=== PATIENT | male | born 1960 | race Caucasian/White ===

== ENCOUNTER 2019-02-20 15:40 | Inpatient (IN) | payer OTHER ==
[~2019-02-20] VITALS: Ht 175.3 cm; Wt 126.6 kg
[~2019-02-20 15:40] MED LIST: AMOX1TAB12 PO; APRESOLINE 10MG10 MG; BOTTL; CARDURA; CARDURA1 MG; CARdura 4MG TABLET PO; CLOTRIM ANTIFUN15 GM; CYMBALTA60 MG PO; DICLOXACILLIN500 MG PO; FERROUS SU325 ( 65 ) PO; FOLIC ACID0.4 MG; GABAPENTIN800 MG; GABAPENTIN800 MG PO; HYDRALAZINE HC100 MG; HYDRALAZINE HCL50 MG PO; HYZAAR 100-251 UDTAB PO; HYZAAR 100/25 T1 TAB; HYZAAR 100/25 T1 TAB PO; INTESTINEX680 MG PO; JANUMET 50-1,1 UDTAB; JANUMET 50-1,1 UDTAB PO; JANUMET XR 1001 EACH; KEPPRA XR500 MG; KEPPRA500 MG PO; LEVOFLOXACIN750 MG PO; LOSARTAN-HCTZ1 EAC1; LOTRISONE CREAM45 GM TP; LYRICA150 MG; METOPROLOL ER-1 EAC1; OMEPRAZOLE20 MG; PRILOSEC OTC20 MG; PRILOSEC OTC20 MG PO; SEROQUEL25 MG; SEROQUEL25 MG PO; SEROQUEL50 MG; SILVADENE50 GM TP; TOPROL XL100 M1 PO; TOPROL XL200 MG; XOPENEX0.63 MG/3 IH; ZANAFLEX2 MG; ZANTAC150 MG; ZANTAC300 MG; ZANTAC300 MG PO; ZOCOR20 MG; ZoCOR 20MG TABLET PO
[2019-02-20] MEDS ORDERED: LYRICA50 MG (16:24)
[2019-02-20] MEDS ORDERED: JANUMET XR 50-1 EAC1 (16:24)
--- NOTE | 2019-02-20 16:26 | NUR ---
SE RECIBE PTE ALERTA Y ORIENTADO X3,ES REFERIDO DE RAÚL SANTOS,EL PTE SE MAREO EN LA MANANA DE YURIY ,REFIEREN QUE TIENE PRESION ALTERIAL BAJA.
--- NOTE | 2019-02-20 16:35 | NUR ---
SE ORIENTA AL PACIENTE SOBRE EL TX. SE CONECTA A MONITOR CARDIACO Y OXIMETRIA DE PULSO. SE EXTRAEN MUESTRAS DE MONICA BAJO MEDIDAS ASEPTICAS SE ROTULAN Y ENVIAN AL LABORATORIO. SE CANALIZA Y ADMINISTRAN MEDICAMENTOS HUSSEIN ORDEN MEDICA. SE INSERTA DOWELL CATETER DRENANDO 300 ML DE UA AMARILLO INTENSO. EKG REALIZADO Y EVALUADO POR DR. SEPULVEDA.
[2019-03-02] MEDS ORDERED: TOPROL XL100 M1 PO (12:12)
[2019-03-02] MEDS ORDERED: CEFDINIR300 MG PO (12:13)
== END 2019-03-02 14:14 | disposition home or self-care (01) | DRG 673 ==
LOC: ER 15:40 → ICU-2 19:25 → ICU 02-21 22:19 → MEDI 02-25 13:53 → MEDJ 02-25 13:53 → MEDI 03-02 14:14
PROVIDERS: ADMIT Internal Medicine
PROC: 4A033R1 Measurement of Arterial Saturation, Peripheral, Percutaneous Approach (ICD-10-PCS; 2019-02-20)
PROC: BT43ZZZ Ultrasonography of Bilateral Kidneys (ICD-10-PCS; 2019-02-20)
PROC: B246ZZZ Ultrasonography of Right and Left Heart (ICD-10-PCS; 2019-02-20)
PROC: 0JBR0ZZ Excision of Left Foot Subcutaneous Tissue and Fascia, Open Approach (ICD-10-PCS; principal; 2019-02-21)
PROC: 30233N1 Transfusion of Nonautologous Red Blood Cells into Peripheral Vein, Percutaneous Approach (ICD-10-PCS; 2019-02-27)
DX: I12.9 Hypertensive chronic kidney disease with stage 1 through stage 4 chronic kidney disease, or unspecified chronic kidney disease (principal); J16.8 Pneumonia due to other specified infectious organisms; N17.8 Other acute kidney failure; L03.116 Cellulitis of left lower limb; L97.528 Non-pressure chronic ulcer of other part of left foot with other specified severity; N18.9 Chronic kidney disease, unspecified; R23.0 Cyanosis; D50.0 Iron deficiency anemia secondary to blood loss (chronic); E78.49 Other hyperlipidemia; K21.9 Gastro-esophageal reflux disease without esophagitis; E11.42 Type 2 diabetes mellitus with diabetic polyneuropathy; E11.621 Type 2 diabetes mellitus with foot ulcer; L30.4 Erythema intertrigo; G47.33 Obstructive sleep apnea (adult) (pediatric); R09.02 Hypoxemia; E11.65 Type 2 diabetes mellitus with hyperglycemia; S80.812A Abrasion, left lower leg, initial encounter; B95.2 Enterococcus as the cause of diseases classified elsewhere

== ENCOUNTER 2019-10-25 07:41 | Emergency (ER) | payer OTHER ==
[~2019-10-25] VITALS: Ht 180.3 cm; Wt 122.5 kg
[~2019-10-25 07:41] MED LIST changes: +CEFDINIR300 MG PO; +JANUMET XR 50-1 EAC1; +LYRICA50 MG
[2019-10-25] MEDS ORDERED: LASIX40 MG PO (07:57)
[2019-10-25] MEDS ORDERED: TOPROL XL100 M1 PO (07:58)
[2019-10-25] MEDS ORDERED: PLAVIX75 MG PO (07:58)
[2019-10-25] MEDS ORDERED: COZAAR50 MG PO (07:59)
[2019-10-25] MEDS ORDERED: GLIMEPIRIDE4 MG (07:59)
[2019-10-25] MEDS ORDERED: KEPPRA500 MG PO (07:59)
[2019-10-25] MEDS ORDERED: JANUVIA100 MG PO (08:00)
[2019-10-25] MEDS ORDERED: LATUDA40 MG PO (08:00)
[2019-10-25] MEDS ORDERED: LYRICA50 MG PO (08:00)
[2019-10-25] MEDS ORDERED: PANTOPRAZOLE SO40 MG PO (08:00)
[2019-10-25] MEDS ORDERED: CLONAZEPAM1 MG PO (08:01)
[2019-10-25] MEDS ORDERED: ZANTAC300 MG PO (08:01)
[2019-10-25] MEDS ORDERED: ULTRACET PO ×2 (14:57→14:58)
[2019-10-25] MEDS ORDERED: MONDOXYNE NL100 MG PO (14:57)
== END 2019-10-25 16:05 | disposition home or self-care (01) ==
LOC: ER 07:41 → CPU-OBS 08:31 → ER 16:05
DX: R07.89 Other chest pain (principal); L97.528 Non-pressure chronic ulcer of other part of left foot with other specified severity
CPT/HCPCS: 93005; G0378; G0379; 82805; 36600

== ENCOUNTER 2020-11-06 10:41 | Inpatient (IN) | payer OTHER ==
[~2020-11-06] VITALS: Ht 180.3 cm; Wt 121.1 kg
[~2020-11-06 10:41] MED LIST changes: +CLONAZEPAM1 MG PO; +COZAAR50 MG PO; +GLIMEPIRIDE4 MG; +JANUVIA100 MG PO; +LASIX40 MG PO; +LATUDA40 MG PO; +LYRICA50 MG PO; +MONDOXYNE NL100 MG PO; +PANTOPRAZOLE SO40 MG PO; +PLAVIX75 MG PO; +ULTRACET PO
[2020-11-06] MEDS ORDERED: TOUJEO SOL300 UNIT/1 SQ (11:03)
--- NOTE | 2020-11-06 11:03 | NUR ---
SE RECIBE PTE ALERTA Y ORIENTADO X 3 QUIEN VERBALIZA DOLOR EN PIE Y PIERNA LT. PTE DIABETICO SE LE REALIZA DEXTROSTICK: 597MG/DL. SE UBICA EN BRYANNA DE OBSERVACION PARA EVALUACION Y TRATAMIENTO MEDICO.
--- NOTE | 2020-11-06 15:25 | NUR ---
PACIENTE ALERTA Y ORIENTADO EN CAMACHO VIRGIE ESFERAS, PRESENTA BUEN PATRON RESPIRATORIO Y NANCY DE DOLOR. RECIBIENDO 0.9% NSS A 150 ML/HR, VENOPUNCION PATENTE Y NANCY DE S/S DE FLEBITIS E INFILTRACION, PENDIENTE EVALUACION DE MEDICINA INTERNA CON DRA [employer] ZHAO POR CELULITIS Y ULCERA EN PIE LT.
== END 2020-12-21 13:39 | DRG 41 ==
LOC: ER 10:41 → SURH 16:43
PROVIDERS: ADMIT Internal Medicine; ATTEND Internal Medicine
PROC: 3E0F7SF Introduction of Other Gas into Respiratory Tract, Via Natural or Artificial Opening (ICD-10-PCS; 2020-11-06)
PROC: 4A033R1 Measurement of Arterial Saturation, Peripheral, Percutaneous Approach (ICD-10-PCS; 2020-11-06)
PROC: 0JBR0ZZ Excision of Left Foot Subcutaneous Tissue and Fascia, Open Approach (ICD-10-PCS; principal; 2020-11-11)
PROC: 0S9D3ZX Drainage of Left Knee Joint, Percutaneous Approach, Diagnostic (ICD-10-PCS; 2020-11-25)
PROC: 02HV33Z Insertion of Infusion Device into Superior Vena Cava, Percutaneous Approach (ICD-10-PCS; 2020-11-27)
PROC: 30233N1 Transfusion of Nonautologous Red Blood Cells into Peripheral Vein, Percutaneous Approach (ICD-10-PCS; 2020-11-30)
PROC: 8E0ZXY6 Isolation (ICD-10-PCS; 2020-12-05)
DX: E11.42 Type 2 diabetes mellitus with diabetic polyneuropathy (principal); L03.116 Cellulitis of left lower limb; N17.8 Other acute kidney failure; L97.428 Non-pressure chronic ulcer of left heel and midfoot with other specified severity; M86.171 Other acute osteomyelitis, right ankle and foot; E11.69 Type 2 diabetes mellitus with other specified complication; E11.621 Type 2 diabetes mellitus with foot ulcer; E11.65 Type 2 diabetes mellitus with hyperglycemia; I12.9 Hypertensive chronic kidney disease with stage 1 through stage 4 chronic kidney disease, or unspecified chronic kidney disease; D50.8 Other iron deficiency anemias; B37.2 Candidiasis of skin and nail; E66.8 Other obesity; N18.32 Chronic kidney disease, stage 3b; Z79.4 Long term (current) use of insulin; Z20.822 Contact with and (suspected) exposure to COVID-19; K59.09 Other constipation; Z68.37 Body mass index [BMI] 37.0-37.9, adult

== ENCOUNTER 2021-10-20 04:44 | Emergency (ER) | payer OTHER ==
[~2021-10-20] VITALS: Ht 172.7 cm; Wt 158.8 kg
[~2021-10-20 04:44] MED LIST changes: +TOUJEO SOL300 UNIT/1 SQ
[2021-10-20] MEDS ORDERED: DICLOFENAC SOD100 MG PO (06:47)
[2021-10-20] MEDS ORDERED: CEPHALEXIN500 MG PO ×2 (06:47→06:50)
[2021-10-20] MEDS ORDERED: DOLOGESIC-DF 51 EACH PO (06:50)
== END 2021-10-20 08:33 ==
LOC: ER 04:44
DX: S89.90XA Unspecified injury of unspecified lower leg, initial encounter (principal); W06.XXXA Fall from bed, initial encounter; Y93.89 Activity, other specified; Y92.013 Bedroom of single-family (private) house as the place of occurrence of the external cause; S59.901A Unspecified injury of right elbow, initial encounter; S59.902A Unspecified injury of left elbow, initial encounter

== ENCOUNTER 2022-10-24 07:09 | Outpatient (CLI) | payer OTHER ==
[~2022-10-24 07:09] MED LIST changes: +CEPHALEXIN500 MG PO; +DICLOFENAC SOD100 MG PO; +DOLOGESIC-DF 51 EACH PO
== END 2022-10-24 07:21 | disposition home or self-care (01) ==
LOC: TOM 07:09
PROVIDERS: ATTEND Surgery
DX: Z12.11 Encounter for screening for malignant neoplasm of colon (principal); K92.1 Melena; K56.5 Intestinal adhesions [bands] with obstruction (postinfection)

== ENCOUNTER 2022-11-27 00:44 | Inpatient (IN) | payer OTHER ==
[~2022-11-27] VITALS: Ht 180.3 cm; Wt 143.8 kg
[2022-11-28] MEDS ORDERED: IRBESARTAN300 MG (10:16)
[2022-11-28] MEDS ORDERED: ATORVASTATIN CA10 MG (10:17)
[2022-11-28] MEDS ORDERED: NORFLEX100MG (10:17)
[2022-11-28] MEDS ORDERED: BUMETANIDE1 MG (10:19)
[2022-11-28] MEDS ORDERED: HYDRALAZINE HCL50 MG (10:20)
[2022-11-28] MEDS ORDERED: FINASTERIDE5 MG (10:20)
[2022-11-28] MEDS ORDERED: OLOPATADINE HCL5 ML (10:20)
[2022-11-28] MEDS ORDERED: FOLIC ACID1 MG (10:20)
[2022-11-28] MEDS ORDERED: INTEGRA PLUS C1 EAC1 (10:20)
[2022-11-28] MEDS ORDERED: DAFLONEX-XL 11300 MG (10:20)
[2022-11-28] MEDS ORDERED: HUMALOG KW100 UNIT/1 (10:20)
[2022-11-28] MEDS ORDERED: TAMSULOSIN HCL0.4 MG (10:20)
[2022-11-28] MEDS ORDERED: FARXIGA10 MG (10:20)
[2022-12-02] MEDS ORDERED: AMOX-CLAV 875-1 EAC1 PO (14:41)
[2022-12-02] MEDS ORDERED: CLOPIDOGREL BIS75 MG PO (14:42)
[2022-12-02] MEDS ORDERED: ELIQUIS2.5 MG PO (14:42)
[2022-12-02] MEDS ORDERED: LIPITOR40 MG PO (14:43)
[2022-12-02] MEDS ORDERED: CLOTRIMAZOLE-BE15 G1 TOP (14:44)
== END 2022-12-02 22:25 | disposition home or self-care (01) | DRG 603 ==
LOC: ER 00:44 → MEDJ 18:19 → SURH 18:19 → MEDJ 19:26 → SURH 19:43
PROVIDERS: ADMIT Internal Medicine; ATTEND Internal Medicine
PROC: B54CZZZ Ultrasonography of Left Lower Extremity Veins (ICD-10-PCS; principal; 2022-11-27)
PROC: B44GZZZ Ultrasonography of Left Lower Extremity Arteries (ICD-10-PCS; 2022-11-27)
DX: L03.116 Cellulitis of left lower limb (principal); E11.69 Type 2 diabetes mellitus with other specified complication; B95.2 Enterococcus as the cause of diseases classified elsewhere; E11.40 Type 2 diabetes mellitus with diabetic neuropathy, unspecified; I87.2 Venous insufficiency (chronic) (peripheral); L08.89 Other specified local infections of the skin and subcutaneous tissue; Z79.4 Long term (current) use of insulin; E11.22 Type 2 diabetes mellitus with diabetic chronic kidney disease; I12.9 Hypertensive chronic kidney disease with stage 1 through stage 4 chronic kidney disease, or unspecified chronic kidney disease; N18.9 Chronic kidney disease, unspecified; G47.33 Obstructive sleep apnea (adult) (pediatric); Z20.822 Contact with and (suspected) exposure to COVID-19

== ENCOUNTER 2023-04-17 08:43 | Outpatient (CLI) | payer OTHER ==
[~2023-04-17 08:43] MED LIST changes: +AMOX-CLAV 875-1 EAC1 PO; +ATORVASTATIN CA10 MG; +BUMETANIDE1 MG; +CLOPIDOGREL BIS75 MG PO; +CLOTRIMAZOLE-BE15 G1 TOP; +DAFLONEX-XL 11300 MG; +ELIQUIS2.5 MG PO; +FARXIGA10 MG; +FINASTERIDE5 MG; +FOLIC ACID1 MG; +HUMALOG KW100 UNIT/1; +HYDRALAZINE HCL50 MG; +INTEGRA PLUS C1 EAC1; +IRBESARTAN300 MG; +LIPITOR40 MG PO; +NORFLEX100MG; +OLOPATADINE HCL5 ML; +TAMSULOSIN HCL0.4 MG
== END 2023-04-17 08:57 | disposition home or self-care (01) ==
LOC: LAB 08:43
PROVIDERS: ATTEND Internal Medicine Hematology & Oncology
DX: D50.8 Other iron deficiency anemias (principal); R79.9 Abnormal finding of blood chemistry, unspecified; I10 Essential (primary) hypertension; R74.02 Elevation of levels of lactic acid dehydrogenase [LDH]; K76.89 Other specified diseases of liver; D63.8 Anemia in other chronic diseases classified elsewhere; D55.0 Anemia due to glucose-6-phosphate dehydrogenase [G6PD] deficiency; D51.1 Vitamin B12 deficiency anemia due to selective vitamin B12 malabsorption with proteinuria; D51.0 Vitamin B12 deficiency anemia due to intrinsic factor deficiency; D63.1 Anemia in chronic kidney disease; E03.8 Other specified hypothyroidism; E06.3 Autoimmune thyroiditis; R97.0 Elevated carcinoembryonic antigen [CEA]; R97.8 Other abnormal tumor markers; R97.20 Elevated prostate specific antigen [PSA]; D51.3 Other dietary vitamin B12 deficiency anemia; N18.32 Chronic kidney disease, stage 3b; E11.22 Type 2 diabetes mellitus with diabetic chronic kidney disease; E42 Marasmic kwashiorkor; E11.622 Type 2 diabetes mellitus with other skin ulcer; E11.319 Type 2 diabetes mellitus with unspecified diabetic retinopathy without macular edema; E11.39 Type 2 diabetes mellitus with other diabetic ophthalmic complication; E78.2 Mixed hyperlipidemia; I73.9 Peripheral vascular disease, unspecified; G40.009 Localization-related (focal) (partial) idiopathic epilepsy and epileptic syndromes with seizures of localized onset, not intractable, without status epilepticus; E55.9 Vitamin D deficiency, unspecified; N40.1 Benign prostatic hyperplasia with lower urinary tract symptoms

== ENCOUNTER 2023-04-17 09:40 | Outpatient (CLI) | payer OTHER | END 2023-04-17 09:47 | disposition home or self-care (01) | LOC: SONOGRAMA 09:40 | PROVIDERS: ATTEND Internal Medicine Hematology & Oncology | DX: E04.2 Nontoxic multinodular goiter (principal) ==

== ENCOUNTER 2023-06-03 11:55 | Inpatient (IN) | payer OTHER ==
[~2023-06-03] VITALS: Ht 180.3 cm; Wt 143.8 kg
[2023-06-05] MEDS ORDERED: CYANOCOBAL1000 MCG/1 (09:00)
[2023-06-05] MEDS ORDERED: MOUNJARO2.5 MG/0.5 (09:01)
[2023-06-05] MEDS ORDERED: PREGABALIN75 MG (09:02)
[2023-06-05] MEDS ORDERED: FAMOTIDINE20 MG (09:02)
[2023-06-05] MEDS ORDERED: ABANEU-SL TABL1 EACH (09:02)
[2023-06-05] MEDS ORDERED: FUSION PLUS CA1 EACH (09:02)
[2023-06-05] MEDS ORDERED: LANTUS SOL100 UNIT/1 (09:02)
== END 2023-06-14 17:06 | disposition home or self-care (01) | DRG 638 ==
LOC: ER 11:55 → MEDJ 20:03
PROVIDERS: ADMIT Specialist; ATTEND Specialist
PROC: BQ3FZZZ Magnetic Resonance Imaging (MRI) of Left Lower Leg (ICD-10-PCS; 2023-06-04)
PROC: 0HBNXZZ Excision of Left Foot Skin, External Approach (ICD-10-PCS; principal; 2023-06-07)
DX: E11.69 Type 2 diabetes mellitus with other specified complication (principal); L03.116 Cellulitis of left lower limb; M86.172 Other acute osteomyelitis, left ankle and foot; L97.529 Non-pressure chronic ulcer of other part of left foot with unspecified severity; E11.621 Type 2 diabetes mellitus with foot ulcer; N17.9 Acute kidney failure, unspecified; R56.9 Unspecified convulsions; L08.9 Local infection of the skin and subcutaneous tissue, unspecified; B96.20 Unspecified Escherichia coli [E. coli] as the cause of diseases classified elsewhere; B96.4 Proteus (mirabilis) (morganii) as the cause of diseases classified elsewhere; B96.89 Other specified bacterial agents as the cause of diseases classified elsewhere; I12.9 Hypertensive chronic kidney disease with stage 1 through stage 4 chronic kidney disease, or unspecified chronic kidney disease; E11.22 Type 2 diabetes mellitus with diabetic chronic kidney disease; N18.9 Chronic kidney disease, unspecified; Z79.4 Long term (current) use of insulin; E66.01 Morbid (severe) obesity due to excess calories; I87.2 Venous insufficiency (chronic) (peripheral); E11.65 Type 2 diabetes mellitus with hyperglycemia; Z74.01 Bed confinement status

== ENCOUNTER 2023-06-26 10:50 | Outpatient (CLI) | payer OTHER ==
[~2023-06-26 10:50] MED LIST changes: +ABANEU-SL TABL1 EACH; +CYANOCOBAL1000 MCG/1; +FAMOTIDINE20 MG; +FUSION PLUS CA1 EACH; +LANTUS SOL100 UNIT/1; +MOUNJARO2.5 MG/0.5; +PREGABALIN75 MG
== END 2023-06-26 10:56 | disposition home or self-care (01) ==
LOC: RAD 10:50
PROVIDERS: ATTEND Specialist
DX: M79.672 Pain in left foot (principal); E10.621 Type 1 diabetes mellitus with foot ulcer

== ENCOUNTER 2023-08-17 11:22 | Inpatient (IN) | payer OTHER ==
[~2023-08-17] VITALS: Ht 180.3 cm; Wt 137.4 kg
--- NOTE | 2023-08-17 12:09 | NUR ---
PTE ALERTA Y ORIENTADO POR VIRGIE ESFERAS CON BUEN PATRON RESPIRATORIO REFIERE QUE VIENE PORQUE GAGNON LO ORDENO QUE VINIERA A ER PARA QUE LO ADMITAN POR ULCERA BILATERAL CON BACTERIA MULTIRESISTENTE.
[2023-08-17 13:13] LABS: URINE APPEARANCE Clear; URINE BILIRRUBIN Negative (NEGATIVE); URINE BLOOD Negative; URINE COLOR Yellow; URINE LEUKOCYTE Negative; URINE NITRATE Negative; URINE PROTEIN Negative (NEGATIVE); URINE UROBILINOGEN 0.2 E.U./dl
[2023-08-17 13:26] LABS: URINE BACTERIA 0 uL (0.0-1933); URINE EPITHELIAL CELLS 0.1 uL (0.0-38.8); URINE GLUCOSE 100 MG/DL (NEGATIVE); URINE RBC 0.4 uL (0.0-20.8); URINE WBC 0.4 uL (0.0-23.2)
[2023-08-17 13:38] LABS: HEMATOCRIT 27.7 % (39.0-48.0); HEMOGLOBIN 9.4 g/dL (13-16.00); MEAN CELL VOLUME 90.8 fL (80.0-100.00); MEAN CORPUSCULAR HGB CONC 34.1 g/dl (32.0-36.0); PLATELET COUNT 222 K/uL (150-450); RED BLOOD COUNT 3.05 M/uL (4.00-6.00); RED CELL DISTRIBUTION WIDTH 15.3 % (11.5-14.5)
[2023-08-17 14:18] LABS: CALCIUM 8.6 mg/dL (8.5-10.1); CREATININE SERUM 3.04 mg/dL (0.70-1.30); GFR 21.13; POTASSIUM 4.1 mEq/L (3.5-5.1)
--- NOTE | 2023-08-17 15:35 | NUR ---
PTE ALERTA Y ORIENTADO X 3 ESFERAS EN BRYANNA CON BARANDAS ELEVADAS,AREA DE VENOPUNCION PATENTE Y NANCY DE EDEMA CON FLUIDOS DE MANTENIMIENTO,PTE MANEJADO POR MS [place] Y MS KIRKPATRICK EN TURNO ANTERIOR,PENDIENTE A SER EVALUADO POR DR BROWN.
[2023-08-17 18:42] LABS: INR 1.16; PARTIAL THROMBOPLASTIN TIME 28.8 SECONDS (22.0-34.0)
[2023-08-20 08:58] LABS: CALCIUM 8.6 mg/dL (8.5-10.1); CREATININE SERUM 2.42 mg/dL (0.70-1.30); GFR 27.4; POTASSIUM 4.28 mEq/L (3.5-5.1)
[2023-08-24 07:31] LABS: HEMATOCRIT 26.4 % (39.0-48.0); MEAN CELL VOLUME 91.3 fL (80.0-100.00); PLATELET COUNT 196 K/uL (150-450); RED BLOOD COUNT 2.89 M/uL (4.00-6.00)
[2023-08-24 08:09] LABS: CALCIUM 8.2 mg/dL (8.5-10.1); CREATININE SERUM 1.93 mg/dL (0.70-1.30); GFR 35.57; POTASSIUM 4.54 mEq/L (3.5-5.1)
== END 2023-08-28 17:12 | disposition home or self-care (01) | DRG 623 ==
LOC: ER 11:22 → MEDJ 18:46
PROVIDERS: Emergency Medicine; General Practice; ADMIT Internal Medicine; ATTEND Internal Medicine
PROC: 0JBN0ZZ Excision of Right Lower Leg Subcutaneous Tissue and Fascia, Open Approach (ICD-10-PCS; principal; 2023-08-22)
PROC: 02HV33Z Insertion of Infusion Device into Superior Vena Cava, Percutaneous Approach (ICD-10-PCS; 2023-08-28)
DX: E11.621 Type 2 diabetes mellitus with foot ulcer (principal); L97.913 Non-pressure chronic ulcer of unspecified part of right lower leg with necrosis of muscle; Z16.24 Resistance to multiple antibiotics; L08.9 Local infection of the skin and subcutaneous tissue, unspecified; D63.1 Anemia in chronic kidney disease; E11.22 Type 2 diabetes mellitus with diabetic chronic kidney disease; N18.9 Chronic kidney disease, unspecified; N17.9 Acute kidney failure, unspecified; I25.10 Atherosclerotic heart disease of native coronary artery without angina pectoris; I13.10 Hypertensive heart and chronic kidney disease without heart failure, with stage 1 through stage 4 chronic kidney disease, or unspecified chronic kidney disease; G47.33 Obstructive sleep apnea (adult) (pediatric); Z79.4 Long term (current) use of insulin; Z74.01 Bed confinement status; E11.40 Type 2 diabetes mellitus with diabetic neuropathy, unspecified; E11.649 Type 2 diabetes mellitus with hypoglycemia without coma; I87.2 Venous insufficiency (chronic) (peripheral); E66.01 Morbid (severe) obesity due to excess calories; B96.83 Acinetobacter baumannii as the cause of diseases classified elsewhere

== ENCOUNTER 2023-12-04 11:22 | Outpatient (CLI) | payer OTHER ==
[2023-12-04 12:22] LABS: MEAN CELL VOLUME 91.7 fL (80.0-100.00); MEAN CORPUSCULAR HEMOGLOBIN 30.7 pg (27.00-32.0); MEAN CORPUSCULAR HGB CONC 33.5 g/dl (32.0-36.0); PLATELET COUNT 208 K/uL (150-450); RED BLOOD COUNT 3.27 M/uL (4.00-6.00); RED CELL DISTRIBUTION WIDTH 16.8 % (11.5-14.5)
[2023-12-04 12:22] LABS: URINE APPEARANCE Clear; URINE BILIRRUBIN Negative (NEGATIVE); URINE BLOOD Negative; URINE COLOR Yellow; URINE LEUKOCYTE Negative; URINE NITRATE Negative; URINE PROTEIN Negative (NEGATIVE); URINE UROBILINOGEN 0.2 E.U./dl
[2023-12-04 13:08] LABS: URINE BACTERIA 2.5 uL (0.0-1933); URINE EPITHELIAL CELLS 0.7 uL (0.0-38.8); URINE GLUCOSE 250 MG/DL (NEGATIVE); URINE RBC 0.7 uL (0.0-20.8); URINE WBC 0.4 uL (0.0-23.2)
[2023-12-04 13:19] LABS: % SATURACION 24.4 % (20-50); ALBUMIN 2.8 gm/dL (3.4-5.0); BILIRUBIN TOTAL 0.4 mg/dL (0.3-1.2); CALCIUM 8.5 mg/dL (8.5-10.1); CREATININE SERUM 2.46 mg/dL (0.70-1.30); FERRITIN 76.5 NG/ML (26-388); GFR 26.88; GLOBULINA 3.1 G/DL (2.4-3.5); PHOSPHOROUS 3.2 mg/dL (2.5-4.9); POTASSIUM 4.25 mEq/L (3.5-5.1); T4 FREE 1.09 NG/ML (0.76-1.46); TOTAL PROTEIN 5.9 gm/dL (6.4-8.2); TSH 2.08 uIU/mL (0.358-3.74)
[2023-12-04 14:01] LABS: FOLIC ACID > 20.00 ng/ml (4.78-20)
[2023-12-04 14:35] LABS: URIC ACID 8.3 mg/dL (3.5-8.5)
[2023-12-04 14:38] LABS: CREATININE URINE RANDOM 32.4 MG/DL (30-125)
[2023-12-04 14:54] LABS: MANUAL PLATELET COUNT 422
[2023-12-04 14:56] LABS: PLATELET ESTIMATE NORMAL (NORMAL)
[2023-12-06 16:11] LABS: ERYTHROPOIETIN 24.9 mIU/mL (2.6-18.5)
== END 2023-12-04 11:23 | disposition home or self-care (01) ==
LOC: LAB 11:22
PROVIDERS: ATTEND Internal Medicine Hematology & Oncology
DX: D51.3 Other dietary vitamin B12 deficiency anemia (principal); D63.1 Anemia in chronic kidney disease; N18.32 Chronic kidney disease, stage 3b; E11.22 Type 2 diabetes mellitus with diabetic chronic kidney disease; E11.42 Type 2 diabetes mellitus with diabetic polyneuropathy; E11.622 Type 2 diabetes mellitus with other skin ulcer; E11.319 Type 2 diabetes mellitus with unspecified diabetic retinopathy without macular edema; E11.39 Type 2 diabetes mellitus with other diabetic ophthalmic complication; E78.2 Mixed hyperlipidemia; I73.9 Peripheral vascular disease, unspecified; G40.009 Localization-related (focal) (partial) idiopathic epilepsy and epileptic syndromes with seizures of localized onset, not intractable, without status epilepticus; E55.9 Vitamin D deficiency, unspecified; N40.1 Benign prostatic hyperplasia with lower urinary tract symptoms; I10 Essential (primary) hypertension; R80.9 Proteinuria, unspecified

== ENCOUNTER 2024-07-11 16:05 | Inpatient (IN) | payer OTHER ==
[~2024-07-11] VITALS: Ht 175.3 cm; Wt 136.1 kg
[2024-07-11] MEDS ORDERED: SODIUM CHLORIDE 0.45 % 1,000 ML IV SCH (17:00)
[2024-07-11] MEDS ORDERED: ACETAMINOPHEN 500 MG GEL..CAP PO ONE ×3 (17:00→22:42)
[2024-07-11 18:06] LABS: HEMATOCRIT 30.2 % (39.0-48.0); HEMOGLOBIN 9.9 g/dL (13-16.00); MEAN CORPUSCULAR HEMOGLOBIN 29.1 pg (27.00-32.0); MEAN CORPUSCULAR HGB CONC 32.7 g/dl (32.0-36.0); PLATELET COUNT 245 K/uL (150-450); RED BLOOD COUNT 3.39 M/uL (4.00-6.00); RED CELL DISTRIBUTION WIDTH 16.7 % (11.5-14.5)
[2024-07-11 18:30] LABS: ALBUMIN 2.7 gm/dL (3.4-5.0); BILIRUBIN TOTAL 0.6 mg/dL (0.3-1.2); CALCIUM 8.5 mg/dL (8.5-10.1); CREATININE SERUM 2.99 mg/dL (0.70-1.30); GFR 21.46; GLOBULINA 3.5 G/DL (2.4-3.5); POTASSIUM 4.64 mEq/L (3.5-5.1); TOTAL PROTEIN 6.2 gm/dL (6.4-8.2)
[2024-07-11] MEDS ORDERED: PIPERACILLIN/TAZOBACTAM SODIUM 3.375 GM VIAL IV ONE ×2 (18:30→18:37)
[2024-07-11] MEDS ORDERED: Pregabalin 50 MG CAPSULE PO ONE (18:30)
[2024-07-11 18:54] LABS: URINE APPEARANCE Clear; URINE BILIRRUBIN Negative (NEGATIVE); URINE BLOOD Negative; URINE COLOR Yellow; URINE KETONE Negative (NEGATIVE); URINE LEUKOCYTE Negative; URINE NITRATE Negative; URINE UROBILINOGEN 0.2 E.U./dl
[2024-07-11 18:59] LABS: URINE BACTERIA 45.3 uL (0.0-1933); URINE EPITHELIAL CELLS 4.1 uL (0.0-38.8); URINE WBC 8.3 uL (0.0-23.2)
[2024-07-11 19:21] LABS: URINE CAST 0.76 uL (0.0-1.40); URINE GLUCOSE 500 MG/DL (NEGATIVE); URINE PROTEIN 100 (NEGATIVE); URINE RBC 0.1 uL (0.0-20.8)
[2024-07-11] MEDS ORDERED: INSULIN GLARGINE,HUM.REC.ANLOG 1,000 UNITS/10 ML UNITS SUBCUTANEO SCH (20:54)
[2024-07-11] MEDS ORDERED: ACETAMINOPHEN 500 MG GEL..CAP PO PRN (21:00)
[2024-07-11] MEDS ORDERED: 0.9 % SODIUM CHLORIDE 1,000 ML IV SCH (21:00)
[2024-07-11] MEDS ORDERED: DEXTROSE 50 % IN WATER 0.5 G/ML DISP.SYRIN IV PRN (21:00)
[2024-07-11] MEDS ORDERED: INSULIN LISPRO 1,000 UNIT/10 ML UNITS SUBCUTANEO PRN (21:00)
[2024-07-12] MEDS ORDERED: PIPERACILLIN/TAZOBACTAM SODIUM 2.25 GM in DEXTROSE 5 % IN WATER 50 ML IV SCH
[2024-07-12 06:48] VITALS: BP 160/51; O2SAT 98
[2024-07-12] MEDS ORDERED: FAMOTIDINE/PF 20 MG/2 ML VIAL ONE (08:00)
[2024-07-12] MEDS ORDERED: Pregabalin 50 MG CAPSULE PO SCH ×3 (09:00→17:00)
[2024-07-12] MEDS ORDERED: CLOTRIMAZOLE 15 GM TUBE TOP SCH (09:00)
[2024-07-12] MEDS ORDERED: hydrALAZINE HCL 50 MG TABLET PO SCH (09:00)
[2024-07-12] MEDS ORDERED: BUMETANIDE 1 MG TABLET PO SCH (09:00)
[2024-07-12] MEDS ORDERED: ATORVASTATIN CALCIUM 40 MG TABLET PO SCH (09:00)
[2024-07-12] MEDS ORDERED: LevETIRAcetam 500 MG TAB. PO SCH (09:00)
[2024-07-12] MEDS ORDERED: FAMOTIDINE/PF 20 MG in 0.9 % SODIUM CHLORIDE 8 ML IV PUSH SCH (09:00)
[2024-07-12] MEDS ORDERED: ENOXAPARIN SODIUM 30 MG/0.3 ML SYRINGE SUBCUTANEO SCH (09:00)
[2024-07-12] MEDS ORDERED: IRON FUM,PS/FOLIC/BCOMP,C NO.9 1 CAP CAPSULE PO SCH (09:00)
[2024-07-12 09:09] VITALS: BP 150/57; O2SAT 96
[2024-07-12] MEDS ORDERED: FLUCONAZOLE 100 MG TABLET PO SCH (10:37)
[2024-07-12] MEDS ORDERED: CHLORHEXIDINE GLUCONATE 120 ML BOTTLE TOP SCH (11:40)
[2024-07-12] MEDS ORDERED: EMOLLIENTS 6 OZ BOTTLE TOP SCH (11:40)
[2024-07-12] MEDS ORDERED: PREGABALIN 100 MG CAPSULE PO SCH ×3 (12:45→17:00)
[2024-07-12] MEDS ORDERED: METOPROLOL SUCCINATE 100 MG TAB.SR.24H PO SCH (17:00)
[2024-07-12] MEDS ORDERED: FINASTERIDE 5 MG TABLET PO SCH (17:00)
[2024-07-12] MEDS ORDERED: LACTOBACILLUS ACIDOPHILUS 1 CAP CAP PO SCH (17:00)
[2024-07-12] MEDS ORDERED: TAMSULOSIN HCL 0.4 MG CAP PO SCH (17:00)
[2024-07-12 19:01] VITALS: BP 185/64
[2024-07-13 03:33] VITALS: BP 183/76; O2SAT 100
[2024-07-13] MEDS ORDERED: INSULIN LISPRO 1,000 UNIT/10 ML UNITS SUBCUTANEO SCH (08:00)
[2024-07-13] MEDS ORDERED: FAMOTIDINE/PF 20 MG/2 ML VIAL ONE (08:20)
[2024-07-13] MEDS ORDERED: PREGABALIN 100 MG CAPSULE PO SCH (09:00)
[2024-07-13 10:15] LABS: HEMATOCRIT 28.6 % (39.0-48.0); HEMOGLOBIN 9.6 g/dL (13-16.00); MEAN CELL VOLUME 89.6 fL (80.0-100.00); MEAN CORPUSCULAR HEMOGLOBIN 29.9 pg (27.00-32.0); MEAN CORPUSCULAR HGB CONC 33.4 g/dl (32.0-36.0); PLATELET COUNT 217 K/uL (150-450); RED CELL DISTRIBUTION WIDTH 16.9 % (11.5-14.5)
[2024-07-13 10:16] VITALS: BP 180/80
[2024-07-13 10:39] LABS: ALBUMIN 2.3 gm/dL (3.4-5.0); BILIRUBIN TOTAL 0.4 mg/dL (0.3-1.2); CALCIUM 8.6 mg/dL (8.5-10.1); CREATININE SERUM 2.58 mg/dL (0.70-1.30); GFR 25.44; GLOBULINA 3.6 G/DL (2.4-3.5); POTASSIUM 4.28 mEq/L (3.5-5.1); TOTAL PROTEIN 5.9 gm/dL (6.4-8.2)
[2024-07-13] MEDS ORDERED: hydrALAZINE HCL 50 MG TABLET PO SCH (17:00)
[2024-07-13 19:01] VITALS: BP 160/77; O2SAT 97
[2024-07-14 02:03] VITALS: BP 129/64; O2SAT 98
[2024-07-14] MEDS ORDERED: FAMOTIDINE/PF 20 MG/2 ML VIAL ONE (08:29)
[2024-07-14 09:24] VITALS: BP 172/82
[2024-07-14] MEDS ORDERED: PIPERACILLIN/TAZOBACTAM SODIUM 2.25 GM VIAL IV ONE (16:11)
[2024-07-14] MEDS ORDERED: SODIUM CHLORIDE 0.45 % 1,000 ML IV SCH (18:45)
[2024-07-14 20:20] VITALS: BP 160/85; O2SAT 97
[2024-07-15 01:50] VITALS: BP 176/78; O2SAT 100
[2024-07-15 08:42] LABS: ALBUMIN 2.1 gm/dL (3.4-5.0); BILIRUBIN TOTAL 0.53 mg/dL (0.3-1.2); CALCIUM 8.6 mg/dL (8.5-10.1); CREATININE SERUM 2.33 mg/dL (0.70-1.30); GFR 28.62; GLOBULINA 3.5 G/DL (2.4-3.5); POTASSIUM 4.43 mEq/L (3.5-5.1); TOTAL PROTEIN 5.6 gm/dL (6.4-8.2)
[2024-07-15 09:39] VITALS: BP 186/78
[2024-07-15] MEDS ORDERED: NIFEDIPINE 30 MG TAB.SA.OSM PO NR (13:10)
[2024-07-15 16:00] VITALS: BP 190/73
[2024-07-15 21:00] VITALS: BP 171/71
[2024-07-16 01:51] VITALS: BP 153/75
[2024-07-16] MEDS ORDERED: INSULIN LISPRO 1,000 UNIT/10 ML UNITS SUBCUTANEO SCH (08:00)
[2024-07-16] MEDS ORDERED: NIFEDIPINE 30 MG TAB.SA.OSM PO SCH (09:00)
[2024-07-16 09:39] VITALS: BP 172/69; O2SAT 98
[2024-07-16] MEDS ORDERED: INSULIN GLARGINE,HUM.REC.ANLOG 1,000 UNITS/10 ML UNITS SUBCUTANEO SCH (17:00)
[2024-07-16 18:37] VITALS: BP 144/77; O2SAT 99
[2024-07-16 22:29] VITALS: BP 164/70
[2024-07-17 02:00] VITALS: BP 144/64
[2024-07-17 07:52] LABS: HEMATOCRIT 27.9 % (39.0-48.0); HEMOGLOBIN 9.5 g/dL (13-16.00); MEAN CELL VOLUME 87.5 fL (80.0-100.00); MEAN CORPUSCULAR HEMOGLOBIN 29.8 pg (27.00-32.0); MEAN CORPUSCULAR HGB CONC 34.1 g/dl (32.0-36.0); PLATELET COUNT 256 K/uL (150-450); RED BLOOD COUNT 3.19 M/uL (4.00-6.00); RED CELL DISTRIBUTION WIDTH 16.2 % (11.5-14.5)
[2024-07-17] MEDS ORDERED: INSULIN LISPRO 1,000 UNIT/10 ML UNITS SUBCUTANEO SCH (08:00)
[2024-07-17] MEDS ORDERED: FAMOTIDINE/PF 20 MG/2 ML VIAL ONE (08:28)
[2024-07-17 08:52] VITALS: BP 145/60
[2024-07-17 09:06] LABS: CALCIUM 8.5 mg/dL (8.5-10.1); CREATININE SERUM 2.2 mg/dL (0.70-1.30); GFR 30.58; POTASSIUM 4.33 mEq/L (3.5-5.1)
[2024-07-17 16:33] VITALS: BP 160/69; O2SAT 98
[2024-07-17] MEDS ORDERED: INSULIN GLARGINE,HUM.REC.ANLOG 1,000 UNITS/10 ML UNITS SUBCUTANEO SCH (17:00)
[2024-07-17 21:25] VITALS: BP 137/66; O2SAT 99
[2024-07-18 02:00] VITALS: BP 150/78
[2024-07-18] MEDS ORDERED: FAMOtidine 20 MG TABLET PO SCH (09:00)
[2024-07-18 09:22] VITALS: BP 143/70
[2024-07-18 18:10] VITALS: BP 168/74
[2024-07-19 01:25] VITALS: BP 137/55; O2SAT 99
[2024-07-19] MEDS ORDERED: INSULIN LISPRO 1,000 UNIT/10 ML UNITS SUBCUTANEO SCH (08:00)
[2024-07-19 10:29] VITALS: BP 159/69
== END 2024-07-19 15:35 | disposition home or self-care (01) | DRG 982 ==
LOC: ER 16:06 → MEDJ 21:23
PROVIDERS: General Practice; Internal Medicine; ADMIT Internal Medicine; ATTEND Internal Medicine
PROC: 0JDR0ZZ Extraction of Left Foot Subcutaneous Tissue and Fascia, Open Approach (ICD-10-PCS; principal; 2024-07-12)
PROC: 0JDR0ZZ Extraction of Left Foot Subcutaneous Tissue and Fascia, Open Approach (ICD-10-PCS; 2024-07-18)
DX: E11.621 Type 2 diabetes mellitus with foot ulcer (principal); L03.116 Cellulitis of left lower limb; L97.529 Non-pressure chronic ulcer of other part of left foot with unspecified severity; N17.9 Acute kidney failure, unspecified; L08.9 Local infection of the skin and subcutaneous tissue, unspecified; B95.1 Streptococcus, group B, as the cause of diseases classified elsewhere; B96.89 Other specified bacterial agents as the cause of diseases classified elsewhere; I12.9 Hypertensive chronic kidney disease with stage 1 through stage 4 chronic kidney disease, or unspecified chronic kidney disease; E11.65 Type 2 diabetes mellitus with hyperglycemia; Z79.4 Long term (current) use of insulin; D64.9 Anemia, unspecified; G47.33 Obstructive sleep apnea (adult) (pediatric); E11.22 Type 2 diabetes mellitus with diabetic chronic kidney disease; N18.30 Chronic kidney disease, stage 3 unspecified